=== PATIENT | male | born 1950 | race Caucasian/White ===

== ENCOUNTER → 2017-01-17 | Outpatient (CLI) | payer OTHER | LOC: MMPC 09:00 | DX: M54.9 Dorsalgia, unspecified (principal); Q21.1 Atrial septal defect; I44.0 Atrioventricular block, first degree; I10 Essential (primary) hypertension; E66.9 Obesity, unspecified; E55.9 Vitamin D deficiency, unspecified; L57.0 Actinic keratosis; L91.8 Other hypertrophic disorders of the skin | CPT/HCPCS: 17000 ×2; 17110 ×2; 99213; G0463 ==